=== PATIENT | male | born 1970 | race Caucasian/White ===

== ENCOUNTER → 2019-02-05 | Emergency (ER) | payer OTHER ==
[~2019-02-05] VITALS: Ht 185.4 cm; Wt 179.1 kg
[~2019-02-05] MED LIST: BP MED?; CATAPRES0.2 MG PO; HYDROCHLOROTHIA25 MG PO; NORVASC10 MG PO; VIBRAMYCIN 100100 MG PO
[2019-02-05 12:17] VITALS: Ht 185.4 cm; Wt 179.1 kg
[2019-02-05 12:50] LABS: BASOPHILS 0.2 % (0-2); EOSINOPHILS 2.4 % (0-7); HEMATOCRIT 46.7 % (42.0-54.0); HEMOGLOBIN 15.3 g/dL (13.5-17.5); IMMATURE GRANULOCYTES 0.4 % (0-5); LYMPHOCYTES 22.6 % (15-50); MCH 26.6 pg (26.0-34.0); MCHC 32.8 g/dL (31.0-37.0); MCV 81.1 fL (80.0-100.0); MEAN PLATELET VOLUME 9.5 fL (7.4-10.4); MONOCYTES 11.6 % (2-11); NEUTROPHILS 62.8 % (40-80); PLATELET COUNT 207 10x3/uL (130-400); RBC 5.76 10x6/uL (4.20-6.10); RDW 15.8 % (11.5-14.5)
[2019-02-05 12:58] LABS: ALBUMIN 3.3 g/dL (3.4-5.0); ALKALINE PHOSPHATASE 109 U/L (46-116); ALT (SGPT) 43 U/L (10-68); BILIRUBIN - TOTAL 0.25 mg/dL (0.2-1.3); CALC OSMOLALITY 283 mosm/kg (275-300); CALCIUM 8.9 mg/dL (8.5-10.1); CARBON DIOXIDE 28.3 mmol/L (21.0-32.0); CHLORIDE - SERUM 105 mmol/L (98-107); GLUCOSE 122 mg/dL (74-106); POTASSIUM - SERUM 3.7 mmol/L (3.5-5.1); SODIUM 141 mmol/L (136-145); UREA NITROGEN 18 mg/dL (7-18); eGFR NON AFRICAN AMERICAN 84 mL/min (90-120)
[2019-02-05 13:01] LABS: TROPONIN-I 0.018 ng/mL (0.000-0.060)
[2019-02-05 15:39] VITALS: BP 180/97
== END | disposition home or self-care (01) ==
LOC: D.ER 12:02
PROVIDERS: Emergency Medicine
DX: I10 Essential (primary) hypertension (principal); L97.919 Non-pressure chronic ulcer of unspecified part of right lower leg with unspecified severity